=== PATIENT | male | born 1990 | race Two or more races ===

== ENCOUNTER 2020-04-13 14:28 | Inpatient (IN) | payer MEDICAID, OTHER ==
[~2020-04-13] VITALS: Ht 177.8 cm; Wt 96.6 kg
[2020-04-13] MEDS ORDERED: diphenhdrAMINE HCL 50 MG/1 ML VL IM ONE (14:45)
[2020-04-13] MEDS ORDERED: LORazepam 2MG/ML-1ML VIAL IM ONE (14:45)
[2020-04-13] MEDS ORDERED: HALOPERIDOL LACTATE 5 MG/ML INJ VIAL IM ONE (14:45)
[2020-04-13] MEDS ORDERED: SODIUM CHLORIDE 0.9% 1,000 ML IV ONE ×2 (14:54)
[2020-04-13 15:46] LABS: Basophils # (auto) 0 10 ^3/uL (0-0.2); Eosinophils # (auto) 0 10 ^3/uL (0-0.8); Eosinophils % (auto) 0.1 % (0.0-7.0); Neutrophils # (auto) 8.3 10 ^3/uL (1.6-8.6)
[2020-04-13 15:48] LABS: Basophils % (auto) 0.2 % (0.0-2.0); Hematocrit 51.7 % (41.0-53.0); Hemoglobin 17.4 g/dL (13.5-17.5); Lymphocytes % (auto) 9.8 % (10.0-50.0); Mean Corpuscular Hemoglobin 29.2 pg (28.0-32.0); Mean Corpuscular Hgb Conc. 33.7 g/dL (32.0-36.0); Mean Corpuscular Volume 86.8 fL (80.0-100.0); Monocytes # (auto) 0.9 10 ^3/uL (0-1.3); Monocytes % (auto) 8.6 % (0.0-12.0); Neutrophils % (auto) 81.3 % (37.0-80.0); Nucleated Red Blood Cells % 0.8 %; Platelet Count (auto) 315 10^3/uL (140-450); Red Blood Cells 5.96 10^6/uL (4.5-5.90); Red Cell Distribution Width 14.4 % (11.8-14.3); White Blood Cell 10.2 10^3/uL (4.4-10.8)
[2020-04-13 15:50] LABS: Urine Amorphous Crystal FEW /hpf (None Seen); Urine Bacteria FEW /hpf (None Seen); Urine Blood Negative /uL (Negative); Urine Hyaline Cast FEW /lpf (0 - 2); Urine Mucus FEW (None Seen); Urine Specific Gravity 1.023 (1.001-1.035); Urine WBC 2 /hpf (0 - 3)
[2020-04-13 16:01] LABS: Albumin 4.4 g/dL (3.4-5.0); Anion Gap 11 (5-15); Blood Alcohol < 3.0 mg/dL (0-5); Blood Urea Nitrogen 18 mg/dL (7-18); Calcium 9.3 mg/dL (8.5-10.1); Carbon Dioxide 20 mmol/L (21-32); Chloride 113 mmol/L (98-107); Glucose 106 mg/dL (74-106); Potassium 3.7 mmol/L (3.5-5.1); Sodium 144 mmol/L (136-145)
[2020-04-13 16:03] LABS: Alanine Aminotransferase 75 U/L (16-61); Aspartate Aminotransferase 30 U/L (15-37); BUN/Creatinine Ratio 8.4; GFR African American 47 mL/min; GFR Non-African American 39 mL/min
[2020-04-13 16:04] LABS: Amphetamine Screen, Urine POSITIVE (NEGATIVE); Barbiturate Scree,Urine NEGATIVE (NEGATIVE); Benzodiazephine Screen, Urine POSITIVE (NEGATIVE); Cocaine Screen, Urine NEGATIVE (NEGATIVE); Opiate Scree,Urine NEGATIVE (NEGATIVE); Phencyclidine Screen, Urine NEGATIVE (NEGATIVE)
[2020-04-13 16:06] LABS: Alkaline Phosphatase 103 U/L (45-117); Bilirubin, Total 1.2 mg/dL (0.2-1.0); Total Protein 9.6 g/dL (6.4-8.2)
[2020-04-13 16:12] LABS: Cannabinoid Screen, Urine POSITIVE (NEGATIVE)
[2020-04-13] MEDS ORDERED: LORazepam 0.5 MG TAB PO PRN (20:00)
[2020-04-13] MEDS ORDERED: MORPHINE SULF INJ 2 MG/ML SYRINGE 1ML IV PRN ×3 (20:00)
[2020-04-13] MEDS ORDERED: METOCLOPRAMIDE HCL 5MG/ml INJ 2ml VIAL IV PRN (20:00)
[2020-04-13] MEDS ORDERED: ALUM & MAG HYDROX-SIMETH LIQ(MAALOX) 30 ML PO PRN (20:00)
[2020-04-13] MEDS ORDERED: METOPROLOL TARTRATE 1MG/1ML-5ML VIAL IV PRN (20:00)
[2020-04-13] MEDS ORDERED: NITROGLYCERIN 0.4 MG SL TAB SL PRN ×2 (20:00)
[2020-04-13] MEDS ORDERED: DOCUSATE SOD 100 MG CAP PO PRN (20:00)
[2020-04-13] MEDS ORDERED: HYDROcodone-ACET 5/325MG TAB PO PRN (20:00)
[2020-04-13 20:42] LABS: Cholesterol 237 mg/dL (< 200); HDL Cholesterol 58 mg/dL (40-59); LDL Cholesterol 164 mg/dL (< 100); Triglycerides 109 mg/dL (< 150)
[2020-04-13] MEDS: SODIUM CHLORIDE 0.9% 1,000 ML IV SCH (20:49)
--- NOTE | 2020-04-13 21:59 | NUR ---
Telemetry admit from ER JAMESON CHICAS admitted to Telemetry unit. Patient oriented to LULU ESPINOZA, RN primary RN, patient is drowsy and responds to name. Patient now on continuous telemetry monitoring, tele box #72 and telemetry reading on arrival to unit is 108. Patient weighed by bedscale and encouraged to call if they need something. Will continue to monitor.
[2020-04-13 22:00] VITALS: BP_SYST 114; BP_SYST 160; BP_DIAS 69; BP_DIAS 75
[2020-04-13] MEDS: METOPROLOL TARTRATE 25 MG TAB PO SCH (22:00)
[2020-04-13 22:10] VITALS: BP 114/75
[2020-04-14] MEDS: AMPICILLIN & SULBACTAM SODIUM 3 GM in SODIUM CHL 0.9% 100 ML IV SCH ×3 (02:00→14:00)
[2020-04-14] MEDS: SODIUM CHLORIDE 0.9% 1,000 ML IV SCH ×4 (02:11→15:59)
--- NOTE | 2020-04-14 02:40 | NUR ---
IV Antibiotic Not Available New order for Unasyn 3gm. Unable to administer IV Antibiotic due to being unavailable in Medication Pyxis. Spoke with charge nurse. Will notify pharmacy in AM.
--- NOTE | 2020-04-14 03:10 | NUR ---
Admission Patient is drowsy, is able to respond to name or light shaking. Patient is altered, can sometimes follow simple commands but continues to fall asleep. Unable to obtain complete and accurate admission assessment due to patient's altered level of consciousness despite multiple attempts. Completed admission with information from hard chart and minimal information patient was able to provided.
[2020-04-14 03:33] LABS: Basophils # (auto) 0 10 ^3/uL (0-0.2); Basophils % (auto) 0.3 % (0.0-2.0); Eosinophils # (auto) 0 10 ^3/uL (0-0.8); Eosinophils % (auto) 0.1 % (0.0-7.0); Hematocrit 47.4 % (41.0-53.0); Hemoglobin 15.7 g/dL (13.5-17.5); Lymphocytes # (auto) 1.9 10 ^3/uL (0.4-5.4); Lymphocytes % (auto) 22.4 % (10.0-50.0); Mean Corpuscular Hemoglobin 29.3 pg (28.0-32.0); Mean Corpuscular Hgb Conc. 33.2 g/dL (32.0-36.0); Mean Corpuscular Volume 88.3 fL (80.0-100.0); Monocytes # (auto) 1.1 10 ^3/uL (0-1.3); Monocytes % (auto) 12.9 % (0.0-12.0); Neutrophils # (auto) 5.5 10 ^3/uL (1.6-8.6); Neutrophils % (auto) 64.3 % (37.0-80.0); Nucleated Red Blood Cells % 0.1 %; Platelet Count (auto) 238 10^3/uL (140-450); Red Blood Cells 5.36 10^6/uL (4.5-5.90); Red Cell Distribution Width 14.3 % (11.8-14.3); White Blood Cell 8.6 10^3/uL (4.4-10.8)
[2020-04-14 03:48] LABS: INR 1.08 (0.9-1.15); Partial Thromboplastin Time 24.7 sec (23.64-32.05)
[2020-04-14 03:52] LABS: Potassium 4.2 mmol/L (3.5-5.1)
[2020-04-14 03:59] LABS: Albumin 3.9 g/dL (3.4-5.0); BUN/Creatinine Ratio 13.3; Bilirubin, Total 1.4 mg/dL (0.2-1.0); Calcium 8.7 mg/dL (8.5-10.1); Magnesium 2.8 mg/dL (1.6-2.6); Phosphorus 3.5 mg/dL (2.5-4.90); Total Protein 8.2 g/dL (6.4-8.2)
[2020-04-14 05:00] VITALS: BP 135/80
[2020-04-14] MEDS ORDERED: FUROSEMIDE 20 MG/2 ML VIAL IV SCH (06:00)
--- NOTE | 2020-04-14 07:00 | NUR ---
Opening Shift Note Received report on the patient. Sleeping lying in bed. Patient shows no signs of distress at this time. Discussed plan of care with the patient. Bed in lowest position, side rails up x2, and the call light is within reach.
[2020-04-14] MEDS ORDERED: ABAC1TAB3 PO (07:27)
[2020-04-14 08:59] VITALS: BP 115/80
[2020-04-14] MEDS: METOPROLOL TARTRATE 25 MG TAB PO SCH (09:33)
[2020-04-14] MEDS ORDERED: ENOXAPARIN SOD 40 MG/0.4 ML SYRINGE SC SCH (10:00)
[2020-04-14] MEDS ORDERED: FAMOTIDINE (10MG/ML) 2ML VL IV SCH (10:00)
[2020-04-14 13:14] VITALS: BP 107/75
[2020-04-14 14:49] VITALS: BP 107/75
--- NOTE | 2020-04-14 15:51 | NUR ---
Assessment Patient is a 29-year-old male who is alert and oriented. Prior to admission patient lived home with family and functioned independently. Patient lives in [place] and will be returning home. Patient [place] Per Patient he does not have health insurance. Informed patient he will be refer to Fred who will assist with [facility]. Advised patient there is a social service consult for ETOH/Drug abuse. Provided resource to patient for substance abuse in the [place]. Patient accepted resources. Per patient he is not homeless. Patient verbalize understanding discharge plan. Addendum: 04/14/20 at 1552 by LEONEL KEVIN Amended: Links added.
--- NOTE | 2020-04-14 16:58 | NUR ---
Discharge instructions given as ordered. Encourage to follow up with PMD as instructed. All questions and concerns addressed. Patient verbalized understanding. Medication reconciliation form completed and copy given to patient. IV removed with catheter intact, pressure dressing applied, west catheter removed. Telemetry unit returned to ICU. Patient taken to vehicle via wheelchair with all personal belongings, accompanied by staff and family member. No distress noted at time of departure.
== END 2020-04-14 16:56 | disposition home or self-care (01) | DRG 812 ==
LOC: ER 14:28 → EDBD 14:28 → TELE 14:29 → TELE-WESTW 22:00
PROVIDERS: ADMIT Hospitalist; ATTEND Family Medicine
DX: T43.621A Poisoning by amphetamines, accidental (unintentional), initial encounter (principal); G92 Toxic encephalopathy; F10.231 Alcohol dependence with withdrawal delirium; J69.0 Pneumonitis due to inhalation of food and vomit; I47.1 Supraventricular tachycardia; N10 Acute pyelonephritis; N18.4 Chronic kidney disease, stage 4 (severe); E78.5 Hyperlipidemia, unspecified; Z21 Asymptomatic human immunodeficiency virus [HIV] infection status; F12.10 Cannabis abuse, uncomplicated; F14.10 Cocaine abuse, uncomplicated; E86.0 Dehydration; F17.200 Nicotine dependence, unspecified, uncomplicated; Z91.83 Wandering in diseases classified elsewhere; Z79.899 Other long term (current) drug therapy; Y92.411 Interstate highway as the place of occurrence of the external cause; Z72.51 High risk heterosexual behavior; Y90.0 Blood alcohol level of less than 20 mg/100 ml
CPT/HCPCS: 36415; 51702; 70450; 71045; 80053; 80061; 80307; 80320; 81001; 83036; 83735; 84100; 84484; 85025; 85610; 85730; 87040; 87086; 93005; 96360; 96361; 96372; G0378; J3490